=== PATIENT | female | born 1985 | race Caucasian/White ===

== ENCOUNTER 2023-04-05 00:59 | Inpatient (IN) | payer OTHER, SELFPAY ==
[2023-04-05 01:22] VITALS: BP 109/64; PULSE 60; RESP 18; TEMP 36.3; O2SAT 97; BMI 32.0
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
[2023-04-05 08:33] VITALS: BP 112/66; PULSE 58; RESP 18; TEMP 36.3; O2SAT 96
[2023-04-05] MEDS: Nicotine 21 MG PATCH.TD24 TRANSDERMA (09:04)
[2023-04-05 09:11] LABS: Estimated Average Glucose 94 mg/dL; Hemoglobin A1C 115.9963 umol/L; Hemoglobin A1c % 4.9 %
[2023-04-05 09:34] LABS: Cholesterol 166 mg/dL; HDL Cholesterol 28 mg/dL; LDL Cholesterol Calculated 104 mg/dl; Triglycerides 172 mg/dL
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
[2023-04-05 11:33] VITALS: BMI 32.3
--- NOTE | 2023-04-05 13:17 | PM.EVENT ---
Event Note Date of Service: 04/05/23 Event Note: Hospitalist consult placed for medical H&P, but patient refused. Did deny any complaints. Had nitrite positive UA with positive trace leuks at [facility]. Would not treat as patient is asymptomatic. If patient reports symtpoms, consider recollecting clean catch UA/UC. Thank you for allowing me to participate in this consult. Signing off at this time. Please do not hesitate to call for further questions or if any medical issues arise. Time Spent With Patient Time: Total time managing care of this patient today ____ minutes.
[2023-04-05] MEDS: Acetaminophen 325 MG TABLET 650 MG PO (14:56)
[2023-04-05 19:21] VITALS: BP 121/58; PULSE 61; RESP 18; TEMP 36.6; O2SAT 96
[2023-04-05] MEDS: Lithium Carbonate ER 300 MG TABLET.ER PO (20:20)
--- NOTE | 2023-04-06 08:00 | ECG_ITS ---
Test Reason : chest pain/cocaine Blood Pressure : / mmHG Vent. Rate : 046 BPM Atrial Rate : 046 BPM P-R Int : 148 ms QRS Dur : 110 ms QT Int : 456 ms P-R-T Axes : 028 005 016 degrees QTc Int : 399 ms Sinus bradycardia Minimal voltage criteria for LVH, may be normal variant ( Emery product ) Borderline ECG No previous ECGs available Referred By: Naveen Sarah Electronically Signed By:Bala Godinez
[2023-04-06 09:00] VITALS: BP 108/72; PULSE 62; RESP 16; TEMP 36.2; O2SAT 98
[2023-04-06] MEDS: Lithium Carbonate ER 300 MG TABLET.ER PO ×2 (09:01→22:03)
[2023-04-06] MEDS: Nicotine 21 MG PATCH.TD24 TRANSDERMA (09:01)
[2023-04-06 09:53] LABS: TSH reflex Free T4 2.03 uIU/mL (0.32-4.0)
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
--- NOTE | 2023-04-06 11:39 | PM.EVENT ---
Event Note Date of Service: 04/06/23 Event Note: EKG this morning showed sinus bradycardia, rate 46. Seen and examined. She is asymptomatic, no sob, lightheadedness, syncope. On exam, regular rhythm, bradycardic. States in the ED prior to admission, had resting HR ranging 49-54. Pt lies in bed most of day, HR does improve to low 60s with activity. Encourage out of bed. TSH WNL. Given she is asymptomatic, no intervention recommended at this time. Please do not hesitate to call should patient become symptomatic. Time Spent With Patient Time: Total time managing care of this patient today ____ minutes.
[2023-04-06 14:11] VITALS: BP 117/62; PULSE 50; RESP 18; O2SAT 97
[2023-04-06 20:15] VITALS: BP 124/71; PULSE 54; RESP 18; TEMP 36.6; O2SAT 96
[2023-04-06] MEDS: traZODone HCL 50 MG TABLET PO (22:07)
[2023-04-06] MEDS: Magnesium Hydrox/Alum Hydrox 30 ML ORAL.SUSP PO (22:07)
[2023-04-07 08:20] LABS: MANUAL DIFF FLAG NO
[2023-04-07 08:23] LABS: Basophils Percent Auto 0.4 % (0-2); Eosinophils Absolute Auto 0.1 X10*3/uL (0.0-0.4); Eosinophils Percent Auto 1.2 % (0-4); Hematocrit 43.9 % (37.0-47.0); Hemoglobin 14.7 g/dl (12.0-16.0); Imm Gran Abs Auto 0.03 X10*3/uL (0.00-0.03); Imm Gran Pct Auto 0.3 % (0.0-0.4); Lymphocytes Absolute Auto 3.8 X10*3/uL (1.2-4.9); Lymphocytes Percent Auto 39.6 % (20-40); Mean Corpuscular HGB Conc 33.5 g/dl (31.0-35.0); Mean Corpuscular Hemoglobin 32.3 pg (27.0-33.0); Mean Corpuscular Volume 96.5 fL (80.0-98.0); Mean Platelet Volume 10.7 fL (9.4-12.3); Monocytes Absolute Auto 0.6 X10*3/uL (0.1-1.2); Monocytes Percent Auto 6.5 % (2-11); Neutrophils Absolute Auto 4.9 x10*3/uL (2.0-8.3); Platelet Count 223 X10*3/uL (160-400); Red Blood Count 4.55 X10*6/uL (4.20-5.50); Red Cell Distribution Width 13.7 % (11.0-16.0); White Blood Count 9.5 X10*3/uL (4.8-10.8)
[2023-04-07 08:52] VITALS: BP 120/64; PULSE 59; RESP 20; TEMP 36.1; O2SAT 97
[2023-04-07] MEDS: Lithium Carbonate ER 300 MG TABLET.ER PO ×2 (09:22→20:47)
[2023-04-07] MEDS: Nicotine 21 MG PATCH.TD24 TRANSDERMA (09:22)
[2023-04-07] MEDS: Acetaminophen 325 MG TABLET 650 MG PO ×2 (12:59→20:47)
[2023-04-07 13:00] VITALS: BP 107/55; PULSE 53
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
[2023-04-07 19:50] VITALS: BP 115/60; PULSE 56; RESP 18; TEMP 36.6; O2SAT 96
[2023-04-07] MEDS: traZODone HCL 50 MG TABLET PO (20:47)
[2023-04-07] MEDS: hydrOXYzine HCL 25 MG TABLET PO (20:47)
[2023-04-08] MEDS: Lithium Carbonate ER 300 MG TABLET.ER PO ×2 (09:36→20:56)
[2023-04-08] MEDS: Nicotine 21 MG PATCH.TD24 TRANSDERMA (09:37)
[2023-04-08] MEDS: Acetaminophen 325 MG TABLET 650 MG PO (09:41)
[2023-04-08 10:33] VITALS: BP 108/60; PULSE 60; RESP 20; TEMP 36.4; O2SAT 96
[2023-04-08 13:00] VITALS: BP 104/56; PULSE 53
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
[2023-04-08 20:55] VITALS: BP 104/56; PULSE 64; RESP 18; O2SAT 99
[2023-04-08] MEDS: traZODone HCL 50 MG TABLET PO (22:58)
[2023-04-09] MEDS: Lithium Carbonate ER 300 MG TABLET.ER PO (09:41)
[2023-04-09] MEDS: Nicotine 21 MG PATCH.TD24 TRANSDERMA (09:42)
[2023-04-09 09:49] VITALS: BP 111/59; PULSE 56; RESP 18; TEMP 36.6; O2SAT 98
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
== END 2023-04-09 14:55 | disposition home or self-care (01) | DRG 882 ==
PROVIDERS: Psychiatry & Neurology Psychiatry; Admitting Provider Psychiatry & Neurology Psychiatry; Responsible Provider Registered Nurse; Visit Provider Psychiatry & Neurology Psychiatry
DX: F43.20 Adjustment disorder, unspecified (principal); R45.851 Suicidal ideations; F32.9 Major depressive disorder, single episode, unspecified; F14.24 Cocaine dependence with cocaine-induced mood disorder; F17.210 Nicotine dependence, cigarettes, uncomplicated; Z71.6 Tobacco abuse counseling
CPT/HCPCS: 36415; 80051; 80061; 80178; 82565; 83036; 84443; 84520; 85025; 93005

== ENCOUNTER → 2023-04-05 00:59 | Outpatient (BNV) | payer OTHER, SELFPAY | PROVIDERS: Admitting Provider Psychiatry & Neurology Psychiatry; Responsible Provider Registered Nurse; Visit Provider Registered Nurse | DX: F14.24 Cocaine dependence with cocaine-induced mood disorder (principal); F43.20 Adjustment disorder, unspecified; F14.20 Cocaine dependence, uncomplicated | CPT/HCPCS: 90792; 99231; 99232; 99238 ==

== ENCOUNTER 2024-06-29 08:45 | Emergency (ER) | payer OTHER, SELFPAY ==
[2024-06-29 08:57] LABS: MANUAL DIFF FLAG NO
[2024-06-29 08:59] LABS: Basophils Percent Auto 0.5 % (0-2); Eosinophils Absolute Auto 0.1 X10*3/uL (0.0-0.4); Eosinophils Percent Auto 1.1 % (0-4); Hematocrit 41.1 % (37.0-47.0); Imm Gran Abs Auto 0.03 X10*3/uL (0.00-0.03); Imm Gran Pct Auto 0.4 % (0.0-0.4); Lymphocytes Absolute Auto 1.8 X10*3/uL (1.2-4.9); Lymphocytes Percent Auto 20.8 % (20-40); Mean Corpuscular HGB Conc 34.1 g/dl (31.0-35.0); Mean Corpuscular Hemoglobin 32.7 pg (27.0-33.0); Mean Platelet Volume 9.6 fL (9.4-12.3); Monocytes Absolute Auto 0.4 X10*3/uL (0.1-1.2); Neutrophils Absolute Auto 6.2 x10*3/uL (2.0-8.3); Neutrophils Percent Auto 72.2 % (45-73); Platelet Count 302 X10*3/uL (160-400); Red Blood Count 4.28 X10*6/uL (4.20-5.50); Red Cell Distribution Width 12.9 % (11.0-16.0); White Blood Count 8.5 X10*3/uL (4.8-10.8)
[2024-06-29 09:01] VITALS: BP 112/72; PULSE 68; RESP 16; TEMP 36.4; O2SAT 99; BMI 32.6
[2024-06-29 09:04] LABS: INTERNATIONAL NORM RATIO 0.9 (0.9-1.1); Prothrombin Time 10.9 SEC (10.9-12.4)
[2024-06-29 09:14] LABS: Alanine Aminotransferase 14 U/L (0-31); Albumin Level 3.8 g/dL (3.5-5.0); Alkaline Phosphatase 35 U/L (39-117); Anion Gap 11 (12-20); Aspartate Amino Transferase 18 U/L (5-31); Bilirubin Total 0.8 mg/dL (0.0-1.0); Blood Urea Nitrogen 10 mg/dL (9-16); Calcium 8.9 mg/dL (8.4-10.2); Carbon Dioxide 23 mmol/L (22-29); Chloride 110 mmol/L (96-108); Creatinine Clr Calc Pharmacy 104.5; Estimated Glomerular Filt Rate > 60; Glucose Random 93 mg/dL (60-115); Potassium 4.1 mmol/L (3.3-5.1); Sodium 140 mmol/L (135-145); Total Protein 5.9 g/dL (6.5-8.0)
[2024-06-29 09:45] VITALS: BP 110/60; PULSE 60; RESP 16; TEMP 36.5; O2SAT 99
--- NOTE | 2024-06-29 09:59 | ED_ITS ---
HPI - Female Genitourinary General Chief complaint: Urogenital-Female Stated complaint: Blood in urine Time Seen by Provider: 06/29/24 09:33 Source: patient Mode of arrival: ambulatory Limitations: no limitations History of Present Illness ED Provider: DR. Bright HPI Narrative: A 39-year-old female woke up this morning found blood when she wiped after urinating in the morning, felt nauseous, dizziness, chills with no fever, patient had a total hysterectomy in 2016, patient also describes suprapubic discomfort and burning sensation with urination for the past 2 days, patient is sexually active with 1 partner no vaginal discharge, no risk for STD. Otherwise no abdominal pain, no flank pain, no history of kidney stones. Related Data Previous Rx's ?Medication ?Instructions ?Recorded lithium carbonate 300 mg 300 mg PO BID 7 days #14 tabs 04/09/23 tablet,extended release cefuroxime axetil 500 mg tablet 500 mg PO BID #20 tabs 06/29/24 Allergies Allergy/AdvReac Type Severity Reaction Status Date / Time No Known Allergies Allergy Verified 06/29/24 09:05 Review of Systems 2 Review of Systems: all other systems are reviewed and are negative Constitutional: Reports as per HPI and Reports no additional constitutional complaints Eyes: Reports as per HPI and Reports no additional eye complaints Reports system reviewed and no additional complaints, except as documented Cardiovascular: Reports as per HPI and Reports no additional cardiovascular complaints Respiratory: Reports as per HPI and Reports no additional respiratory complaints Gastrointestinal: Reports as per HPI and Reports no additional gastrointestinal complaints Genitourinary: Reports no additional female genitourinary complaints Musculoskeletal: Reports no additional musculoskeletal complaints Skin/Breast: Reports system reviewed and no additional complaints, except as docu Psychiatric: Reports no additional psychiatric complaints Endocrine: Reports no additional endocrine complaints Hematologic/Lymphatic: Reports no additional hematologic/lymphatic complaints Allergic/Immunologic: Reports no additional allergic/immunologic complaints Reports system reviewed and no additional complaints, except as documented and Reports Abnormal speech present [facility] Social History Social History Household Members: None Housing: Homeless Do you presently have visiting nurse or other home services: No Patient Tobacco Use Status: Current everyday Tobacco user Tobacco use type: Cigarette Smoked in Last 30 Days: Yes e-Cigarette/Vaping Use: Never Used Use of substances other than those prescribed or required for medical reasons: Yes Substance Use Type: Crack/Cocaine Substance Use Frequency: Occasionally Advance Directives: No Advance Directives Information Provided: No Patient : No service: No Sexual orientation: Straight/Heterosexual Physical Exam 2 Vital Signs: Vital Signs: Last Vital Signs Temp 97.7 F 06/29/24 09:45 Pulse 60 06/29/24 09:45 Resp 16 06/29/24 09:45 BP 110/60 06/29/24 09:45 Pulse Ox 99 06/29/24 09:45 O2 Del Method Room Air 06/29/24 09:45 BMI result Body Mass Index 32.6 Vital signs have been reviewed and appear to be correct. Blood pressure elevated. Heart rate normal. Respiratory rate normal. Temperature normal. Oxygen saturation normal. Appearance: Alert. Oriented X3. No acute distress. Head: Normal external exam. Normocephalic. Atraumatic. No [place] signs noted. No raccoon eyes noted Eyes: PERRLA. EOMI. Conjunctiva and sclera normal. Eyelids normal. ENT: TM's Normal. Pharynx normal. Uvula midline. Moist mucous membranes. No trismus noted. No drooling noted. No muffled voice noted. Neck: Normal inspection. Neck supple. FROM. No adenopathy. Thyroid Normal. No meningeal signs. No neck mass noted. CVS: Normal heart rate and rhythm. Heart sound normal. No murmurs noted. Pulses normal throughout. Respiratory: No respiratory distress. Painless inspiration. Breath sounds normal. No wheezes/rales/rhonchi noted. Chest nontender. No accessory muscle usage noted or decreased air movement noted. Abdomen: Soft and nontender. Bowel sounds normal in all 4 quadrants. No distention noted. No organomegaly noted. No visible injury noted. Pelvic exam: No blood in the vault, no discharge, no rashes. Back: No CVA tenderness. Full range of motion noted. Skin: Skin warm and dry. Normal skin color. Normal skin turgor. No rashes/lesions/lacerations noted. Extremities: No lower extremity edema. Extremities exhibit normal range of motion. Extremities nontender. Neuro: Oriented X 3. Cranial nerve exam: II-XII are grossly intact No motor deficit. No sensory deficit. Reflexes normal. Course Reevaluation(s) Reevaluation #1: Painless hematuria. Unremarkable guillotine trimmer exam patient with history of hysterectomy, no vaginal bleed. Stable labs except for UTI start the patient on cefuroxime for 10 days, first dose was started in the emergency department. Time: 10:45 Medical Decision Making Differential Diagnosis Differential Diagnoses: The differential diagnosis associated with the presentation includes ( UTI, kidney stone, vaginal bleed, pyelonephritis, electrolyte derangement, severe anemia.) Admission/Observation Consideration of admission/observation: Escalation of care including admission/observation considered Lab Data MDM Lab Attestation statement: I reviewed the patient's lab results. 06/29/24 08:53 06/29/24 08:53 Labs: Lab Results 06/29/24 06/29/24 Range/Units 08:53 09:57 WBC 8.5 (4.8-10.8) X10*3/uL RBC 4.28 (4.20-5.50) X10*6/uL Hgb 14.0 (12.0-16.0) g/dl Hct 41.1 (37.0-47.0) % MCV 96.0 (80.0-98.0) fL MCH 32.7 (27.0-33.0) pg MCHC 34.1 (31.0-35.0) g/dl RDW 12.9 (11.0-16.0) % Plt Count 302 D (160-400) X10*3/uL MPV 9.6 (9.4-12.3) fL Immature Gran % (Auto) 0.4 (0.0-0.4) % Neut % (Auto) 72.2 (45-73) % Lymph % (Auto) 20.8 (20-40) % [place] % (Auto) 5.0 (2-11) % Eos % (Auto) 1.1 (0-4) % Baso % (Auto) 0.5 (0-2) % Lymph # (Auto) 1.8 (1.2-4.9) X10*3/uL [place] # (Auto) 0.4 (0.1-1.2) X10*3/uL Eos # (Auto) 0.1 (0.0-0.4) X10*3/uL Baso # (Auto) 0.0 (0.0-0.2) X10*3/uL Abs Immat Gran (auto) 0.03 (0.00-0.03) X10*3/uL Absolute Neuts (auto) 6.2 (2.0-8.3) x10*3/uL Absolute Nucleated RBC 0.000 (0.0-0.012) X10*3/uL Nucleated RBC % (auto) 0.0 (0.0-0.2) /100WBC PT 10.9 (10.9-12.4) SEC INR 0.9 (0.9-1.1) Sodium 140 (135-145) mmol/L Potassium 4.1 (3.3-5.1) mmol/L Chloride 110 H (96-108) mmol/L Carbon Dioxide 23 (22-29) mmol/L Anion Gap 11 L (12-20) BUN 10 (9-16) mg/dL Creatinine 0.76 (0.5-1.4) mg/dL Estim Creat Clear Calc 104.5 Estimated GFR > 60 Random Glucose 93 (60-115) mg/dL Calcium 8.9 (8.4-10.2) mg/dL Total Bilirubin 0.8 (0.0-1.0) mg/dL AST 18 (5-31) U/L ALT 14 (0-31) U/L Alkaline Phosphatase 35 L (39-117) U/L Total Protein 5.9 L (6.5-8.0) g/dL Albumin 3.8 (3.5-5.0) g/dL Urine Color Dark Yellow Urine Appearance Clear Urine pH 5.5 (5.0-9.0) Ur Specific [place] >= 1.030 H (1.005-1.025) Urine Protein Negative (Neg-Trace) mg/dL Urine Glucose (UA) Negative (Negative) mg/dL Urine Ketones Trace (Negative) mg/dL Urine Blood Moderate (2+) H (Negative) Urine Nitrite Negative (Negative) Ur Leukocyte Esterase Moderate (2+) H (Negative) Urine RBC >20 H (0-2) /HPF Urine WBC >50 H (0-5) /HPF Ur Squamous Epith Cells 3-5 (0-2) /HPF Urine Bacteria None Seen (None Seen) Hyaline Casts 0-2 (0-2) /LPF Discharge Plan Discharge Clinical Impression: UTI (urinary tract infection), Hematuria Patient Disposition: Home, Self-Care Instructions: Urinary Tract Infection in Women (ED) Additional Instructions: follow-up with your primary doctor, drink plenty of water. Prescriptions: New cefuroxime axetil 500 mg tablet 500 mg PO BID Qty: 20 0RF No Action lithium carbonate 300 mg Tablet Extended Release 300 mg PO BID 7 Days Qty: 14 0RF Print Language: [place]
[2024-06-29 10:05] LABS: Appearance Urine Clear; Color Urine Dark Yellow; Glucose Urine UA Negative (Negative); Leukocyte Esterase Urine Moderate (2+) (Negative); Nitrite Urine Negative (Negative); PH 5.5 (5.0-9.0); UMIC TRIGGER UACC YES; Urine Blood Moderate (2+) (Negative); Urine Ketones Trace mg/dL (Negative); Urine Protein Negative (Neg-Trace)
[2024-06-29 10:26] LABS: Bacteria Urine None Seen (None Seen); Hyaline Casts Urine 0-2 /LPF (0-2); RBC Urine >20 /HPF (0-2); Specific Gravity - Urine >= 1.030 (1.005-1.025); UACC Culture Trigger YES; WBC Urine >50 /HPF (0-5)
[2024-06-29 11:03] VITALS: BP 93/52; PULSE 62; RESP 17; TEMP 36.5; O2SAT 99
[2024-06-29 11:04] VITALS: BP 93/52; PULSE 62; RESP 17; TEMP 36.5; O2SAT 99
[2024-06-29] MEDS: cefuroxime axetiL 500 MG TABLET PO (11:04)
== END 2024-06-29 11:31 | disposition home or self-care (01) ==
PROVIDERS: Physician Assistant; Emergency Provider Emergency Medicine
DX: N39.0 Urinary tract infection, site not specified (principal); R31.9 Hematuria, unspecified; R11.2 Nausea with vomiting, unspecified; F17.210 Nicotine dependence, cigarettes, uncomplicated; Z79.899 Other long term (current) drug therapy
CPT/HCPCS: 36415; 80053; 81001; 85025; 85610; 87086; 99284